=== PATIENT | male | born 1990 | race Caucasian/White ===

== ENCOUNTER 2024-06-19 21:08 | Emergency (ER) | payer OTHER ==
[~2024-06-19] VITALS: Ht 188 cm; Wt 127.0 kg
[2024-06-19 21:13] VITALS: O2SAT 98
[2024-06-19] MEDS: DIPHENHYDRAMINE 50MG/ML VIAL IV ONE (22:21)
[2024-06-19] MEDS: ONDANSETRON HCL 4MG/2ML INJ IV STA (22:21)
[2024-06-19] MEDS: SODIUM CHLORIDE 0.9% 1000ML BAG (SEPSIS BOLUS) IV ONE (22:21)
[2024-06-19] MEDS: FAMOTIDINE 20MG/2ML VIAL IV ONE (22:22)
[2024-06-19] MEDS: METHYLPREDNISOLONE SOD SUCC 125MG/2ML (ACT-O-VIAL) IV ONE (22:22)
[2024-06-19 22:25] LABS: CHLORIDE 104 mEq/L (98-107); POTASSIUM 3.6 mEq/L (3.5-5.1); SODIUM 141 mEq/L (136-145)
[2024-06-19 22:26] LABS: CALCIUM 9.2 mg/dL (8.7-10.4); CARBON DIOXIDE 24 mEq/L (21-32)
[2024-06-19 22:31] LABS: CREATININE 1.5 mg/dL (0.6-1.3); GLUCOSE 181 mg/dL (70-105); UREA NITROGEN BLOOD 14 mg/dL (9-23)
[2024-06-19 22:33] LABS: ALANINE AMINOTRANSFERASE 33 IU/L (10-49); ALBUMIN 4.4 g/dL (3.2-4.8); ASPARTATE AMINOTRANSFERASE 30 IU/L (<34); BASOPHILS % 0.3 % (0.0-2.0); BILIRUBIN TOTAL 0.5 mg/dL (0.1-1.0); EOSINOPHILS % 0.4 % (0.0-5.0); HEMOGLOBIN. 17.4 g/dL (14.0-18.0); MEAN CORPUSCULAR HEMOGLOBIN 28.3 pg (28.0-32.0); MEAN CORPUSCULAR HGB CONC 32.7 g/dL (31.0-37.0); MEAN CORPUSCULAR VOLUME 86.4 fL (80.0-94.0); MEAN PLATELET VOLUME 8.2 fl (7.4-10.4); MONOCYTES % 4.4 % (2.0-8.0); NEUTROPHILS % 80.9 % (40.0-76.0); PLATELET 391 x1000/uL (130-400); PROTEIN TOTAL 7.2 g/dL (6.0-8.3); RED BLOOD CELL COUNT 6.14 mill/uL (4.7-6.1); RED CELL DISTRIBUTION WIDTH 14.4 % (11.6-14.6); TROPONIN I HIGH SENSITIVITY < 4 ng/L (3.0-53); WHITE BLOOD COUNT 25.2 x1000/uL (4.5-11.0)
[2024-06-19 22:36] LABS: LACTIC ACID 6.8 mmol/L (0.4-2.0)
[2024-06-19] MEDS: CEFTRIAXONE 1GM/50ML 50 ML IV ONE (23:27)
[2024-06-19 23:33] LABS: CLARITY URINE CLEAR (CLEAR); COLOR URINE YELLOW (YELLOW); GLUCOSE URINE NEGATIVE (NEGATIVE); KETONES URINE NEGATIVE (NEGATIVE); LEUKOCYTE ESTERASE URINE NEGATIVE (NEGATIVE); NITRITE URINE NEGATIVE (NEGATIVE); OCCULT BLOOD URINE NEGATIVE (NEGATIVE); PH URINE 5.5 (4.5-8.0); PROTEIN URINE NEGATIVE (NEGATIVE); UROBILINOGEN URINE 0.2 E.U./dL (0.2-1.0)
[2024-06-19] MEDS: AZITHROMYCIN 500MG/250ML 250 ML IV ONE (23:44)
[2024-06-20] MEDS: ONDANSETRON HCL 4MG/2ML INJ IV NR (00:17)
[2024-06-20 02:00] VITALS: PULSE 90; RESP 18; TEMP 37.00296; O2SAT 96
[2024-06-20 02:07] VITALS: BP 132/72
== END 2024-06-20 02:30 | disposition left against medical advice (07) ==
LOC: ER 21:08 → EDBEDREQTM 06-20 01:51 → EDBEDREQ 06-20 01:51 → ER 06-20 02:30 → CANBEDREQ 06-20 02:54
DX: T78.2XXA Anaphylactic shock, unspecified, initial encounter (principal); A41.9 Sepsis, unspecified organism; R65.21 Severe sepsis with septic shock; Z20.822 Contact with and (suspected) exposure to COVID-19; X58.XXXA Exposure to other specified factors, initial encounter
CPT/HCPCS: 80053; 81003; 83605; 85025; 87086; 84484; 36415; 71045; 93005; 96367; 96361; 96365; 96375; 99291; 87426; 96376; J0456; J0696; J1200; J3490; J2919; J2405 ×2; J7030; Z7610